=== PATIENT | female | born 2000 | race Caucasian/White ===

== ENCOUNTER 2021-07-11 09:03 | Emergency (ER) | payer MEDICAID, OTHER ==
[2021-07-11] MEDS ORDERED: Ondansetron 4 MG Tab.DIS PO ONE (10:18)
== END 2021-07-11 11:15 | disposition home or self-care (01) ==
LOC: JD.ED 09:03
DX: N93.8 Other specified abnormal uterine and vaginal bleeding (principal); Z86.16 Personal history of COVID-19
CPT/HCPCS: 36415; 80048; 81025; 85025; 99284; A9270